=== PATIENT | female | born 1935 | race Caucasian/White ===

== ENCOUNTER → 2019-10-29 | Outpatient (CLI) | payer MEDICARE, BC ==
[2019-10-29 10:50] LABS: APPEARANCE,URINE CLEAR; BILIRUBIN,URINE NEGATIVE (NEGATIVE); COLOR,URINE YELLOW; GLUCOSE, URINE NEGATIVE (NEGATIVE); KETONES,URINE NEGATIVE (NEGATIVE); LEUKOCYTE ESTERASE,URINE NEGATIVE (NEGATIVE); NITRITE,URINE NEGATIVE (NEGATIVE); PROTEIN,URINE NEGATIVE (NEGATIVE); URINE SPECIFIC GRAVITY 1.011; UROBILINOGEN,URINE NEGATIVE mg/dL (<2.0)
[2019-10-29 10:53] LABS: ADD MANUAL MICROSCOPIC YES
[2019-10-29 10:58] LABS: BACTERIA,URINE TRACE /HPF; WBC,URINE 0-1 /HPF
[2019-10-29 11:05] LABS: ABSOLUTE BASOPHILS # (AUTO) 0.1 10^3/uL (0.0-0.2); ABSOLUTE EOSINOPHILS # (AUTO) 0.1 10^3/uL (0.0-0.6); ABSOLUTE LYMPHOCYTES (AUTO) 1.4 10^3/uL (0.5-4.7); ABSOLUTE MONOCYTES (AUTO) 0.6 10^3/uL (0.1-1.4); ABSOLUTE NEUT (AUTO) 4.3 10^3/uL (1.7-8.2); BASOPHILS % (AUTO) 0.8 % (0-2); HEMATOCRIT 36.8 % (36.0-47.0); HEMOGLOBIN 12.7 g/dL (12.0-15.5); LYMPHOCYTES % (AUTO) 21.6 % (13-45); MEAN CORPUSCULAR HEMOGLOBIN 35.1 pg (27.0-33.4); MEAN CORPUSCULAR HGB CONC 34.5 g/dL (32.0-36.0); MEAN CORPUSCULAR VOLUME 102 fl (80-97); MONOCYTES % (AUTO) 9.9 % (3-13); PLATELET COUNT 214 10^3/uL (150-450); RED BLOOD COUNT 3.61 10^6/uL (3.72-5.28); RED CELL DISTRIBUTION WIDTH 14.3 % (11.5-14.0); SEGMENTED NEUTROPHILS % (AUTO) 65.7 % (42-78); TOTAL CELLS COUNTED % (AUTO) 100 %; WHITE BLOOD COUNT 6.5 10^3/uL (4.0-10.5)
[2019-10-29 11:11] LABS: ANION GAP 9 (5-19); BLOOD UREA NITROGEN 25 mg/dL (7-20); CALCIUM 9.6 mg/dL (8.4-10.2); CARBON DIOXIDE 27 mmol/L (22-30); CHLORIDE 109 mmol/L (98-107); GLUCOSE 116 mg/dL (75-110); POTASSIUM 3.7 mmol/L (3.6-5.0)
== END ==
LOC: OD 08:47
PROVIDERS: ATTEND Orthopaedic Surgery
DX: Z01.811 Encounter for preprocedural respiratory examination (principal); Z01.812 Encounter for preprocedural laboratory examination
CPT/HCPCS: 36415; 80048; 81001; 85025

== ENCOUNTER → 2019-11-11 | Outpatient (CLI) | payer MEDICARE, BC ==
--- NOTE | 2019-11-11 13:40 | XCELERA REPORT ---
[address] [address] Transthoracic Echocardiogram Report Name: SERJIO MOSQUEDA Age: 84 yrs Gender: Female : 1935 Patient Status: Outpatient Patient Location: Study Date: 11/11/2019 09:31 AM History: CHF DELILAH CAD Height: 63 in Weight: 133 lb BSA: 1.6 m2 Procedure: A complete two-dimensional transthoracic echocardiogram was performed (2D, M-mode, spectral and color flow Doppler). The study was technically adequate with some images being suboptimal in quality. Reason For Study: CHF Previous Evaluation: No previous studies were available. History: CAD. CHF. LBBB. Ordering Physician: SHELLEY COATES Performed By: Elieser Head Interpretation Summary Left ventricular systolic function is low normal. The Ejection Fraction estimate is 50-55% The right ventricle is normal in size and function. There is a trace amount of mitral regurgitation There is no aortic valve stenosis There is a mild amount of tricuspid regurgitation There is mild pulmonary hypertension by echo There is no pericardial effusion. MMode/2D Measurements & Calculations RVDd: 3.1 cm LVIDd: 3.9 cm FS: 25.9 % Ao root diam: 3.1 cm IVSd: 1.1 cm LVIDs: 2.9 cm EDV(Teich): Ao root area: LVPWd: 1.1 cm 64.7 ml 7.6 cm2 ESV(Teich): LA dimension: 3.3 cm 31.4 ml EF(Teich): 51.6 % LVLd ap4: 8.5 cm SV(MOD-sp4): EDV(MOD-sp4): 35.0 ml 78.0 ml LVLs ap4: 7.7 cm ESV(MOD-sp4): 43.0 ml EF(MOD-sp4): 44.9 % Doppler Measurements & Calculations MV E max saadia: MV P1/2t max saadia: Ao V2 max: LV V1 max P.6 cm/sec 60.4 cm/sec 115.8 cm/sec 2.7 mmHg MV A max saadia: MV P1/2t: 72.2 msec Ao max PG: LV V1 max: 123.9 cm/sec MVA(P1/2t): 3.0 cm2 5.4 mmHg 82.9 cm/sec MV E/A: 0.55 MV dec slope: 244.9 cm/sec2 MV dec time: 0.26 sec PA V2 max: PI end-d saadia: TR max saadia: MV P1/2t-pr_phl: 81.9 cm/sec 133.4 cm/sec 266.0 cm/sec 72.2 msec PA max P.7 mmHg TR max P.3 mmHg Left Ventricle The left ventricle is grossly normal size. There is mild to moderate concentric left ventricular hypertrophy. Left ventricular systolic function is low normal. The Ejection Fraction estimate is 50-55%. Septal motion is consistent with conduction abnormality. Right Ventricle The right ventricle is normal in size and function. Atria The right atrium is normal. The left atrial size is normal. Mitral Valve The mitral valve is grossly normal. There is no evidence of mitral valve prolapse. There is a trace amount of mitral regurgitation. Aortic Valve The aortic valve is trileaflet. The aortic valve is normal in structure and function. The aortic valve is sclerotic, but shows no functional abnormality. There is no aortic valve stenosis. No aortic regurgitation is present. Tricuspid Valve The tricuspid valve is normal in structure and function. There is a mild amount of tricuspid regurgitation. Right ventricular systolic pressure is estimated to be elevated at 30-40mmHg. There is mild pulmonary hypertension by echo. Pulmonic Valve The pulmonic valve is normal in structure and function. There is a mild amount of pulmonic regurgitation. Great Vessels The aortic root is not well visualized. The inferior vena cava appeared normal and decreased > 50% with respiration (RAP 5-10 mmHg). Effusions There is no pericardial effusion. : SHELLEY COATES Anil
== END ==
LOC: SP 09:10
PROVIDERS: ATTEND Internal Medicine
DX: I50.9 Heart failure, unspecified (principal)
CPT/HCPCS: 93306

== ENCOUNTER → 2020-06-06 | Outpatient (CLI) | payer MEDICARE, BC ==
[2020-06-06 09:34] LABS: ABSOLUTE BASOPHILS # (AUTO) 0.1 10^3/uL (0.0-0.2); ABSOLUTE EOSINOPHILS # (AUTO) 0.1 10^3/uL (0.0-0.6); ABSOLUTE LYMPHOCYTES (AUTO) 1.8 10^3/uL (0.5-4.7); ABSOLUTE MONOCYTES (AUTO) 0.7 10^3/uL (0.1-1.4); ABSOLUTE NEUT (AUTO) 4.6 10^3/uL (1.7-8.2); BASOPHILS % (AUTO) 0.8 % (0-2); EOSINOPHILS % (AUTO) 1.4 % (0-6); HEMATOCRIT 37.9 % (36.0-47.0); HEMOGLOBIN 12.8 g/dL (12.0-15.5); LYMPHOCYTES % (AUTO) 24.5 % (13-45); MEAN CORPUSCULAR HEMOGLOBIN 35.9 pg (27.0-33.4); MEAN CORPUSCULAR HGB CONC 33.8 g/dL (32.0-36.0); MEAN CORPUSCULAR VOLUME 106 fl (80-97); MONOCYTES % (AUTO) 9.7 % (3-13); PLATELET COUNT 193 10^3/uL (150-450); RED BLOOD COUNT 3.57 10^6/uL (3.72-5.28); RED CELL DISTRIBUTION WIDTH 14.4 % (11.5-14.0); SEGMENTED NEUTROPHILS % (AUTO) 63.6 % (42-78); TOTAL CELLS COUNTED % (AUTO) 100 %; WHITE BLOOD COUNT 7.3 10^3/uL (4.0-10.5)
[2020-06-06 09:44] LABS: APPEARANCE,URINE CLEAR; BILIRUBIN,URINE NEGATIVE (NEGATIVE); COLOR,URINE YELLOW; GLUCOSE, URINE NEGATIVE (NEGATIVE); KETONES,URINE NEGATIVE (NEGATIVE); LEUKOCYTE ESTERASE,URINE SMALL (NEGATIVE); NITRITE,URINE NEGATIVE (NEGATIVE); PROTEIN,URINE NEGATIVE (NEGATIVE); URINE SPECIFIC GRAVITY 1.014; UROBILINOGEN,URINE NEGATIVE mg/dL (<2.0)
[2020-06-06 10:12] LABS: ANION GAP 11 (5-19); BLOOD UREA NITROGEN 33 mg/dL (7-20); CALCIUM 9.9 mg/dL (8.4-10.2); CARBON DIOXIDE 29 mmol/L (22-30); CHLORIDE 103 mmol/L (98-107); GLUCOSE 108 mg/dL (75-110); POTASSIUM 3.6 mmol/L (3.6-5.0)
--- NOTE | 2020-06-06 11:15 | RADIOLOGY REPORT (SQ) ---
EXAM DESCRIPTION: CHEST PA/LATERAL IMAGES COMPLETED DATE/TIME: 06/06/2020 8:49 am REASON FOR STUDY: ENCOUNTER FOR PREPROCEDURAL LABORATORY EXAMINATION COMPARISON: 12/21/2012 EXAM PARAMETERS: NUMBER OF VIEWS: two views TECHNIQUE: Digital Frontal and Lateral radiographic views of the chest acquired. RADIATION DOSE: NA LIMITATIONS: none FINDINGS: LUNGS AND PLEURA: Coarse bilateral interstitial opacities with more focal hazy opacities a t the bilateral lung bases. No dense consolidation. No pleural effusion or pneumothorax. MEDIASTINUM AND HILAR STRUCTURES: No masses or contour abnormalities. HEART AND VASCULAR STRUCTURES: Normal heart size. Vascular calcifications. BONES: No acute findings. Degenerative changes at the shoulders bilaterally. HARDWARE: None in the chest. OTHER: No other significant finding. IMPRESSION: Coarse bilateral interstitial opacities suggestive of fibrosis. More focal bibasilar op acities may represent superimposed interstitial edema. No significant effusion. TECHNICAL DOCUMENTATION: JOB ID: [id number] 2010 [employer]- All Rights Reserved Reading location - IP/workstation name: [email or web address]
--- NOTE | 2020-06-06 18:50 | EKG REPORT ---
SEVERITY:- ABNORMAL ECG - SINUS RHYTHM LEFT BUNDLE BRANCH BLOCK INFERIOR Q WAVES, POSSIBLY DUE TO LBBB : Confirmed by: Jose Luis Ross MD 06-Jun-2020 18:49:57
== END ==
LOC: OD 07:53
PROVIDERS: ATTEND Orthopaedic Surgery
DX: Z01.810 Encounter for preprocedural cardiovascular examination (principal); Z01.811 Encounter for preprocedural respiratory examination; Z01.812 Encounter for preprocedural laboratory examination; M25.812 Other specified joint disorders, left shoulder; I10 Essential (primary) hypertension; I44.7 Left bundle-branch block, unspecified
CPT/HCPCS: 36415; 71046; 80048; 81001; 85025; 93005; 93010

== ENCOUNTER 2020-07-05 07:40 | Inpatient (IN) | payer MEDICARE, BC ==
[~2020-07-05 07:40] MED LIST: CEFAZOLIN 2 GM/D5W RTU 2 GM/50 ML RTUPB IV ONE; CEFAZOLIN 2 GM/D5W RTU 2 GM/50 ML RTUPB IV PRN; DEXAMETHASONE SOD PHOSPHATE INJ 4 MG/1 ML VIAL ONE; EPHEDRINE SULFATE INJ 50 MG/1 ML AMPULE ONE; FENTANYL CITRATE INJ/PF 100 MCG/2 ML AMPUL ONE; LACTATED RINGERS 1000 ML IV PRN; LIDOCAINE 0.5% INJ-PF (5 MG/ML) 50 ML SDV SUBCUT PRN; MIDAZOLAM 2 MG/2 ML INJ ONE; ONDANSETRON HCL INJ/PF 4 MG/2 ML SDV ONE; PROPOFOL INJ 200 MG/20 ML VIAL IV ONE
[2020-07-05] MEDS ORDERED: BUPIVACAINE HCL 0.25 % INJ/PF (2.5 MG/1 ML) 30 ML VIAL ONE (09:13)
[2020-07-05] MEDS ORDERED: TRANEXAMIC ACID INJ/PF 1,000 MG/10 ML SDV ONE (12:03)
[2020-07-05] MEDS ORDERED: VANCOMYCIN HCL INJ 1000 MG VIAL ONE (13:32)
--- NOTE | 2020-07-05 14:25 | Operative Report ---
Operative Report DATE OF SURGERY: 07/05/20 PREOPERATIVE DIAGNOSIS: Left shoulder rotator cuff arthropathy POSTOPERATIVE DIAGNOSIS: Same OPERATION: Left reverse total shoulder arthroplastyArthrex SURGEON: MARILYNN CAMACHO ANESTHESIA: GA COMPLICATIONS: None ESTIMATED BLOOD LOSS: 75cc PROCEDURE: Indication for above procedure: 85-year-old female with longstanding history of left shoulder rotator cuff arthropathy. Attempted conservative measures including multiple injections and anti-inflammatories. After failing conservative treatment we discussed treatment options including operative versus nonoperative intervention despite patient's age she felt her shoulder was causing her significant functional disability and decreasing her quality of life thus decision was made to proceed with operative intervention. Risk and benefits were explained patient verbalized understanding consented for surgery procedure. Procedure In Detail: Patient was seen and evaluated in the preoperative holding area. The LEFT upper extremity was initialized and marked. Patient received 2g of Ancef IV for bacterial prophylaxis. Patient was taken back to the operative room where transferred to the operative table and placed under general anesthesia. Once they were adequately anesthetized patient placed in the beachchair position. Cervical spine was placed in neutral position all bony prominences were padded including nonoperative upper extremity and bilateral lower extremity. A surgical team debriefing was performed ensuring all instrumentation was available, the surgical procedure was discussed with possible concerns reviewed. The upper extremity was prepped with ChloraPrep draped in a sterile fashion. A timeout was done identifying correct patient, procedure and extremity everyone in attendance agree with this and verbalized no concerns. Longitudinal skin incision was made just medial to the AC joint extending distally to the lateral aspect of the humerus. Blunt dissection was performed. Deltopectoral interval was visualized and cephalic vein retracted in a medial direction. Any small tributaries were coagulated with cautery. Clavicle pectoralis fascia was then opened and the circumflex vessels identified tied off medially and laterally and coagulated. Blunt dissection was performed along the lateral aspect of the humerus superficial to the deltoid. Axillary nerve was palpated medially. The proximal 25% of the pectoralis major tendon was then released. Biceps tendon was identified and biceps tenotomy was performed with #2 FiberWire suture. The rotator interval was then released. Subscapularis was peeled off the lesser tuberosity. A Fukuda retractor was then placed posteriorly on the glenoid. Inferior capsule was then released proximal to the axillary nerve which was identified earlier in the case. Remanent biceps tendon and labrum anterior and posterior was then resected. Wound was copiously irrigated with pulse lavage and Betadine saline. Intramedullary guide was placed along the humerus with version between 20 and 40 degrees. Hand reaming was performed up to a size 7 stem. The saw guide was secured with K wires and the medullary reamer removed. Humeral head was then resected. Any residual osteophytes were excised. Metal cap was placed over the medullary canal and attention then turned to preparation of the glenoid. The Arthrex aiming arm for the MGS glenosphere was then placed as according to the preoperative planning. K wire was drilled to the appropriate depth. Central aspect of the glenoid was then reamed until cancellous bone was appreciated. The outer reamer was then placed cleaning the remanent of the glenoid. The central screw was then drilled and tapped. A 24 mm modular baseplate was then implanted with a central screw which was prepared on the back table. Aiming arm was then placed superiorly and a 24 mm 5.5 peripheral locking screw was placed. Anterior and posterior screws measured 16 mm and thus 5.5 x 16 mm screws were placed. Inferior screw was then noted to be 24 mm and a 5.5 x 24 mm locking screw was placed. There was good stability of the baseplate to the glenoid. The Arthrex universe reverse modular glenosphere 36+4 lateral/24 was then implanted and screw seated to the appropriate position. Proximal humerus was once again exposed. Began broaching with a size 5 broach broaching up to a size 7 broach maintaining version between 30 and 40 mm. Size 7 had adequate fit then began trialing with a 36 neutral suture cup and a 36+3 humeral insert. This did provide stability the patient had residual laxity with adduction and external rotation thus a small 36+3 and a 36+6 mm spacer was implanted. This provided more optimal stability and thus decision was made to proceed with implantation of the size. Wound was copiously irrigated with Betadine pulse lavage. FiberWire sutures were placed through the medullary canal to allow for later subscapularis repair. The Arthrex universe reverse humeral stem size 7 with 36 neutral suture cup, universe reverse humeral insert small 36+3 and a universe reverse spacer 36+6 was implanted at completion patient had good stability. Wound was then irrigated with saline. Area was filled with 1 g of vancomycin powder. Subscapularis was repaired via the transosseous sutures with the should er at 40 degrees of external rotation. Deltopectoral interval was closed with interrupted #1 Vicryl suture. Subcutaneous tissues were closed with 2-0 Vicryl suture. Skin was closed with kd. Acticoat dressing secured. Sponge counts, instrument counts, needle counts were correct. Patient was then awoken from anesthesia. Transferred from the operating room table to the operating room stretcher. There was no intraoperative complications patient tolerated procedure well stable to PACU. Postop plan: Patient will be admitted for 23-hour observation started on enteric-coated aspirin 81 mg twice daily for DVT prophylaxis. Plan will be for discharge home within the next 24-48 hours. Will begin physical therapy as per reverse total shoulder protocol. Implants used: Universe Reverse MGS baseplate 24 mm with 20 mm central screw Arthrex Universe Reverse glenosphere 36+4 lateral/24 Universe Reverse humeral stem size 7, 36 neutral cup, small, 36+3 humeral insert, 36+6 mm spacer
[2020-07-05] MEDS ORDERED: POLYETHYLENE GLYCOL 3350 POWDER 17 GM/1 PACKET PO PRN (14:28)
[2020-07-05] MEDS ORDERED: ONDANSETRON HCL INJ/PF 4 MG/2 ML SDV IV PRN (14:28)
[2020-07-05] MEDS ORDERED: MORPHINE SULFATE 10 MG/ML INJ IV PRN (14:28)
[2020-07-05] MEDS ORDERED: ONDANSETRON HCL INJ/PF 4 MG/2 ML SDV ONE (14:28)
[2020-07-05] MEDS ORDERED: GLYCOPYRROLATE 1 MG/5 ML VIAL ONE (14:36)
[2020-07-05] MEDS ORDERED: SUCCINYLCHOLINE CHLORIDE INJ 200 MG/10 ML VIAL ONE (14:36)
[2020-07-05] MEDS ORDERED: CEFAZOLIN 2 GM/D5W RTU 2 GM/50 ML RTUPB IV SCH (18:00)
[2020-07-05] MEDS: CEFAZOLIN SODIUM 2 GM in DEXTROSE 5%-WATER 100 ML IV SCH (19:10)
[2020-07-05] MEDS: ASPIRIN 325 MG TABLET, ENT COATED PO SCH (19:10)
--- NOTE | 2020-07-05 19:10 | RADIOLOGY REPORT (SQ) ---
EXAM DESCRIPTION: SHOULDER LEFT 2 OR MORE VIEWS IMAGES COMPLETED DATE/TIME: 07/05/2020 3:09 pm REASON FOR STUDY: post op M25.812 OTHER SPECIFIED JOINT DISORDERS, LEFT SHOULDER COMPARISON: None. NUMBER OF VIEWS: Three views. TECHNIQUE: Internal rotation, external rotation, and Y view images acquired of the left shoulder. LIMITATIONS: None. FINDINGS: Postoperative images show a left shoulder arthroplasty in good position. IMPRESSION: Left shoulder arthroplasty. Refer to operative note for further information. TECHNICAL DOCUMENTATION: JOB ID: [id number] 2010 [employer]- All Rights Reserved Reading location - IP/workstation name: [email or web address]
[2020-07-06] MEDS: CEFAZOLIN SODIUM 2 GM in DEXTROSE 5%-WATER 100 ML IV SCH ×4 (00:46→18:15)
[2020-07-06 05:25] LABS: HEMOGLOBIN 11.8 g/dL (12.0-15.5); MEAN CORPUSCULAR HEMOGLOBIN 35.8 pg (27.0-33.4); MEAN CORPUSCULAR HGB CONC 33.8 g/dL (32.0-36.0); MEAN CORPUSCULAR VOLUME 106 fl (80-97); PLATELET COUNT 155 10^3/uL (150-450); RED BLOOD COUNT 3.31 10^6/uL (3.72-5.28); RED CELL DISTRIBUTION WIDTH 13.9 % (11.5-14.0); WHITE BLOOD COUNT 8.3 10^3/uL (4.0-10.5)
[2020-07-06 05:51] LABS: INTERNATIONAL RATION (INR) 1.21; PROTHROMBIN TIME 15.5 SEC (11.4-15.4)
--- NOTE | 2020-07-06 07:56 | PDOC PROGRESS REPORT ---
Subjective Date:: 07/06/20 Subjective:: No acute events overnight. Pain currently well controlled. No new complaints. Reason For Visit: S/P LEFT REVERSE TOTAL SHOULDER Physical Exam Vital Signs: Temp Pulse Resp BP Pulse Ox 98.9 F 94 18 174/71 H 95 07/06/20 03:52 07/06/20 03:52 07/06/20 03:52 07/06/20 03:52 07/06/20 03:52 Intake & Output 07/05/20 07/06/20 07/07/20 06:59 06:59 06:59 Intake Total 2790 Output Total 1575 Balance 1215 Weight 67.9 kg Physical Exam: No acute distress, alert and orient x3 Left upper extremity sensation grossly intact to radial median and ulnar nerve. upper extremity motor function grossly intact to radian median ulnar nerve AIN and PIN Pulses 2+, capillary refill less than 2 seconds Compartments soft, no tenderness to palpation Incision clean dry and intact Results Laboratory Results: 07/06/20 04:54 07/05/20 08:16 07/05/20 07/06/20 08:16 04:54 WBC 8.3 RBC 3.31 L Hgb 11.8 L Hct 35.0 L MCV 106 H MCH 35.8 H MCHC 33.8 RDW 13.9 Plt Count 155 Potassium 4.0 Impressions: Shoulder X-Ray 07/05/20 14:26 IMPRESSION: Left shoulder arthroplasty. Refer to operative note for further information. Assessment & Plan - Diagnosis (1) History of reverse total replacement of left shoulder joint Is this a current diagnosis for this admission?: Yes Plan: -Nonweightbearing left upper extremity Maintain dressing until seen in the office Follow-up with Dr. Sravan Edwards as scheduled Case management consult Patient wishes to go to rehab if possible. I explained that may be difficult given her diagnosis however we will further evaluate her needs, may need home health if discharged home. If there is ongoing concern for discharge home today given disposition issues, may remove discharge order and allow for another night. -Complete 24 hours of perioperative antibiotics - Time Time Spent with patient: Less than 15 minutes
[2020-07-06] MEDS: ASPIRIN 325 MG TABLET, ENT COATED PO SCH (10:23)
--- NOTE | 2020-07-06 16:53 | PDOC TRANSFER SUMMARY ---
Impression - Admit/DC Date/PCP Admission Date/Primary Care Provider: 07/05/20 10:30 PEARL RAMEY MD Discharge Date: 07/06/20 - Discharge Diagnosis (1) History of reverse total replacement of left shoulder joint Is this a current diagnosis for this admission?: Yes - Additional Information Discharge Diet: As Tolerated Discharge Activity: No Lifting Over 10 Pounds, No Lifting/Push/Pulling Referrals: [facility] [Outside] SRAVAN CAMACHO DO [ACTIVE STAFF] - 07/18/20 10:10 am (S/P 07/05 LEFT SHOULDER) Prescriptions: Aspirin 81 mg PO BID 21 Days #46 tab.chew Hydrocodone/Acetaminophen [[place] 5-325 mg Tablet] 1 tab PO Q6 PRN #25 tablet PRN Reason: Home Medications: Allopurinol [Zyloprim 300 mg Tablet] 300 mg PO DAILY 12/21/12 Calcium Carbonate/Vitamin D3 [Calcium 600-Vit D3 400 Caplet] 1 each PO DAILY 12/21/12 Carvedilol [Coreg 25 mg Tablet] 25 mg PO Q12 12/21/12 Cholecalciferol (Vitamin D3) [Vitamin D3 1000 Unit Tablet] 1,000 unit PO DAILY 12/21/12 Torsemide [Demadex 20 mg Tablet] 20 mg PO Q12 12/21/12 Ubidecarenone/Vit E Acet [Co Q-10 100 mg Softgel] 1 each PO DAILY 12/21/12 Losartan Potassium 100 mg PO DAILY 01/18/15 Montelukast Sodium 10 mg PO QHS 01/18/15 Simvastatin [Zocor 20 mg Tablet] 20 mg PO QHS 01/18/15 Glucosamine Sulfate Dipot Chlr [Glucosamine] 1,000 mg PO BID 07/01/20 Aspirin 81 mg PO BID 21 Days #46 tab.chew 07/05/20 Fluticasone Propionate [Flonase Nasal [place] 50 Mcg/[place] 16 gm] 2 spray NAREB DAILY 07/05/20 Hydrocodone/Acetaminophen [[place] 5-325 mg Tablet] 1 tab PO Q6 PRN #25 tablet 07/05/20 History of Present Illiness History of Present Illness: 85-year-old female with longstanding history of left shoulder rotator cuff arthropathy. Attempted conservative measures including multiple injections and anti-inflammatories. After failing conservative treatment we discussed treatment options including operative versus nonoperative intervention despite patient's age she felt her shoulder was causing her significant functional disability and decreasing her quality of life thus decision was made to proceed with operative intervention. Risk and benefits were explained patient verbalized understanding consented for surgery procedure. Hospital Course Hospital Course: Patient under uncomlicated left reverse total shoulder arthroplasty 07/05/2020. Patient tolerated procedure well and was sent to PACU. That evening patient's pain remained controlled and lo was d/c'd. She subsequently had no issues overnight. Patient H/H 11.8/35.0 POD #1 and remained asymptomatic w/ pain controlled. Patient progressed appropriately throughout her postoperative course w/o complications and was ortho stable for d/c 07/06/2020 Physical Exam Vital Signs: Temp Pulse Resp BP Pulse Ox 98.6 F 83 20 162/86 H 95 07/06/20 12:15 07/06/20 12:15 07/06/20 12:15 07/06/20 12:15 07/06/20 12:15 Intake & Output 07/05/20 07/06/20 07/07/20 06:59 06:59 06:59 Intake Total 2790 581 Output Total 1575 260 Balance 1215 321 Weight 67.9 kg General appearance: PRESENT: no acute distress, well-developed, well-nourished Head exam: PRESENT: atraumatic, normocephalic Eye exam: PRESENT: conjunctiva pink, EOMI, PERRLA. ABSENT: scleral icterus Ear exam: PRESENT: normal external ear exam Mouth exam: PRESENT: moist, tongue midline Neck exam: ABSENT: carotid bruit, JVD, lymphadenopathy, thyromegaly Respiratory exam: PRESENT: clear to auscultation brinda. ABSENT: rales, rhonchi, wheezes Cardiovascular exam: PRESENT: RRR. ABSENT: diastolic murmur, rubs, systolic murmur Pulses: PRESENT: normal dorsalis pedis pul Vascular exam: PRESENT: normal capillary refill GI/Abdominal exam: PRESENT: normal bowel sounds, soft. ABSENT: distended, guarding, mass, organolmegaly, rebound, tenderness Rectal exam: PRESENT: deferred Extremities exam: PRESENT: full ROM. ABSENT: calf tenderness, clubbing, pedal edema Musculoskeletal exam: PRESENT: other - left shoulder: drsg c/d/i. intact IP/MP flexion/extension. Sensation grossly intact. Mild swelling compartments soft and compressible Neurological exam: PRESENT: alert, awake, oriented to person, oriented to place, oriented to time, oriented to situation, CN II-XII grossly intact. ABSENT: motor sensory deficit Psychiatric exam: PRESENT: appropriate affect, normal mood. ABSENT: homicidal ideation, suicidal ideation Skin exam: PRESENT: dry, intact, warm. ABSENT: cyanosis, rash Results Laboratory Results: WBC 8.3 10^3/uL (4.0-10.5) 07/06/20 04:54 RBC 3.31 10^6/uL (3.72-5.28) L 07/06/20 04:54 Hgb 11.8 g/dL (12.0-15.5) L 07/06/20 04:54 Hct 35.0 % (36.0-47.0) L 07/06/20 04:54 MCV 106 fl (80-97) H 07/06/20 04:54 MCH 35.8 pg (27.0-33.4) H 07/06/20 04:54 MCHC 33.8 g/dL (32.0-36.0) 07/06/20 04:54 RDW 13.9 % (11.5-14.0) 07/06/20 04:54 Plt Count 155 10^3/uL (150-450) 07/06/20 04:54 PT 15.5 SEC (11.4-15.4) H 07/06/20 04:54 INR 1.21 07/06/20 04:54 Potassium 4.0 mmol/L (3.6-5.0) 07/05/20 08:16 COVID-19 Source See comment 07/01/20 09:44 COVID-19 ([facility]) Not Detected (Not Detect) 07/01/20 09:44 Impressions: Shoulder X-Ray 07/05/20 14:26 IMPRESSION: Left shoulder arthroplasty. Refer to operative note for further information. Plan Plan of Treatment: -Nonweightbearing left upper extremity, continue sling may remove for hygiene purposes -ASA 81mg DVT prophylaxis Maintain dressing until seen in the office Follow-up with Dr. Sravan Camacho as scheduled -Patient orthopedically stable for d/c Stroke Is this a Stroke Patient?: No Acute Heart Failure Is this a Heart Failure Patient?: No
[2020-07-06 17:30] VITALS: BP 161/77
[2020-07-06] MEDS ORDERED: ASPIRIN 81 MG TABLET, ENT COATED PO SCH (18:00)
== END 2020-07-06 19:21 | DRG 483 ==
LOC: INOR 07:40 → INTOOBSV 07:40 → OBSVTOIN 10:30 → 4W 15:43
PROVIDERS: ADMIT Orthopaedic Surgery; ATTEND Orthopaedic Surgery
PROC: 0RRK00Z Replacement of Left Shoulder Joint with Reverse Ball and Socket Synthetic Substitute, Open Approach (ICD-10-PCS; principal; 2020-07-05 09:45)
DX: M25.812 Other specified joint disorders, left shoulder (principal); I25.10 Atherosclerotic heart disease of native coronary artery without angina pectoris; I11.0 Hypertensive heart disease with heart failure; I50.9 Heart failure, unspecified; Z88.2 Allergy status to sulfonamides
CPT/HCPCS: 01638; 36415; 64415; 76942; 84132; 85027; 85610; 87635; C9803; J0330; J0690; J1100; J2250; J2270; J2405; J2704; J3010; J3370; J3490; J7060